=== PATIENT | female | born 1945 | race Caucasian/White ===

== ENCOUNTER → 2017-09-23 | Outpatient (CLI) | payer MEDICARE, BC, OTHER | LOC: MC.RAD 10:10 | DX: Z12.31 Encounter for screening mammogram for malignant neoplasm of breast (principal) ==

== ENCOUNTER → 2017-09-25 | Outpatient (CLI) | payer MEDICARE, BC, OTHER | LOC: MC.RAD 09:46 | DX: R92.2 Inconclusive mammogram (principal) ==

== ENCOUNTER 2017-09-30 09:40 | Outpatient (CLI) | payer MEDICARE, BC, OTHER ==
[~2017-09-30] VITALS: Ht 149.9 cm; Wt 53.0 kg
[2017-09-30 10:30] VITALS: BP 121/66; PULSE 63; TEMP 98.9
[2017-09-30] MEDS ORDERED: LIPITOR 10MG10 MG PO (10:35)
[2017-09-30] MEDS ORDERED: THE MEDICINE S200 M2 PO (10:36)
[2017-09-30] MEDS ORDERED: ARICEPT10 MG PO (10:37)
[2017-09-30] MEDS ORDERED: FIBER GUMMIES2.5 GM PO (10:38)
[2017-09-30] MEDS ORDERED: ONE-A-DAY WOMEN1 TAB PO (10:39)
[2017-09-30] MEDS ORDERED: LUTEIN20 M1 PO (10:39)
[2017-09-30] MEDS ORDERED: TRIAMCINOLONE A15 GM TP (10:40)
== END 2017-09-30 11:55 | disposition home or self-care (01) ==
LOC: EUO 09:40
DX: M81.0 Age-related osteoporosis without current pathological fracture (principal)
CPT/HCPCS: J3489

== ENCOUNTER 2018-08-30 14:45 | Outpatient (CLI) | payer MEDICARE, BC, OTHER ==
[~2018-08-30] VITALS: Ht 149.9 cm; Wt 55.2 kg
[~2018-08-30 14:45] MED LIST: ARICEPT10 MG PO; FIBER GUMMIES2.5 GM PO; LIPITOR 10MG10 MG PO; LUTEIN20 M1 PO; ONE-A-DAY WOMEN1 TAB PO; THE MEDICINE S200 M2 PO; TRIAMCINOLONE A15 GM TP
[2018-08-30] MEDS ORDERED: TYLENOL 325MG325 MG PO (15:06)
[2018-08-30] MEDS ORDERED: ASPIRIN 32325 MG/TAB PO (15:07)
[2018-08-30] MEDS ORDERED: ZYRTEC 10MG10 MG PO (15:08)
[2018-08-30] MEDS ORDERED: ADVIL200 MG PO (15:08)
[2018-08-30] MEDS ORDERED: PRILOSEC 20MG20 MG PO (15:10)
[2018-08-30 15:22] VITALS: BP 115/54; PULSE 62; TEMP 99.2
== END 2018-08-30 16:01 | disposition home or self-care (01) ==
LOC: EUO 14:45
DX: M81.0 Age-related osteoporosis without current pathological fracture (principal)
CPT/HCPCS: J3489

== ENCOUNTER 2019-02-22 14:26 | Outpatient (CLI) | payer MEDICARE, BC, OTHER ==
[~2019-02-22] VITALS: Ht 149.9 cm; Wt 56.0 kg
[~2019-02-22 14:26] MED LIST changes: +ADVIL200 MG PO; +ASPIRIN 32325 MG/TAB PO; +PRILOSEC 20MG20 MG PO; +TYLENOL 325MG325 MG PO; +ZYRTEC 10MG10 MG PO
[2019-02-22 15:00] VITALS: BP 115/64; PULSE 74; TEMP 98.5
== END 2019-02-22 16:44 | disposition home or self-care (01) ==
LOC: EUO 14:26
DX: M81.0 Age-related osteoporosis without current pathological fracture (principal)
CPT/HCPCS: J3489

== ENCOUNTER 2019-04-07 18:50 | Inpatient (IN) | payer MEDICARE, BC, OTHER ==
[~2019-04-07] VITALS: Ht 152 cm; Wt 56.7 kg
[2019-04-07 19:17] LABS: BASO % 0.3 % (0.0-2.0); EOS # 0.3 (0.0-0.7); EOS % 2.2 % (0-4.0); GRAN # 9.4 (1.4-6.5); GRAN % 69.7 % (42.2-75.2); HEMATOCRIT 39.4 % (37.0-47.0); HEMOGLOBIN 13.1 g/dl (12.5-16.0); LYMPH # 2.8 (1.2-3.4); LYMPH % 21.1 % (20.0-51.0); MEAN CELL VOLUME 88 fl (80.0-100.0); MEAN CORPUSCULAR HEMOGLOBIN 29 pg (27.0-31.0); MEAN CORPUSCULAR HGB CONC 33 g/dl (33.0-37.0); MEAN PLATELET VOLUME 9.5 fl (7.4-10.4); MONO # 0.9 (0.1-0.6); MONO % 6.3 % (1.7-9.3); PLATELET COUNT 330 K/mm3 (130-400); RED BLOOD COUNT 4.47 M/mm3 (4.10-5.30); REDCELL DISTRIBUTION WIDTH-CV 13.5 % (11.5-14.5)
[2019-04-07 19:33] LABS: ALBUMIN 4.4 gm/dL (3.5-5.0); BILIRUBIN,TOTAL 0.5 mg/dL (0.0-1.0); C-REACTIVE PROTEIN 1.8 mg/dL (0.0-0.9); CREATININE, serum 1.01 (0.52-1.25); POTASSIUM 3.5 mmol/L (3.4-5.0); TOTAL PROTEIN 7.5 gm/dL (6.4-8.2)
[2019-04-07 20:55] LABS: COLLECTION METHOD CLEAN CATCH
[2019-04-07 21:02] LABS: PROTHROMBIN TIME 11.5 SECONDS (9.7-12.8)
[2019-04-07 21:05] LABS: PH 6 (5-8); SQUAMOUS EPITHELIAL 0-2 /hpf; URINE APPEARANCE Clear; URINE BACTERIA None Seen /hpf; URINE BILIRUBIN Negative (NEGATIVE); URINE BLOOD Negative (NEGATIVE); URINE COLOR Straw; URINE GLUCOSE Negative (NEGATIVE); URINE KETONE Negative (NEGATIVE); URINE LEUKOCYTE ESTERASE 1+ (NEGATIVE); URINE NITRATE Negative (NEGATIVE); URINE PROTEIN(semi-quant) Negative (NEGATIVE); URINE RBC None Seen /hpf; URINE UROBILINOGEN Negative (NEGATIVE)
[2019-04-07 21:05] LABS: PARTIAL THROMBOPLASTIN TIME 29.8 SECONDS (26.0-37.0)
[2019-04-07] MEDS ORDERED: PRESERVISION1 SGL PO (21:41)
[2019-04-07] MEDS ORDERED: IMODIUM A-D2 MG PO (21:43)
[2019-04-07] MEDS ORDERED: BENADRYL25 M2 PO (21:44)
--- NOTE | 2019-04-07 22:00 | NUR ---
Pt arrived via stretcher from ER. Ambulatory to bed without difficulty. Pt denies pain. at bedside to help with admission. Pt is a poor historian due to dementia. Med Rec reviewed with patient and and medication bottles. Respirations are even and unlabored. Lungs clear. Abdomen soft, nontender. BS+. No c/o pain. No needs voiced.
[2019-04-07 22:03] VITALS: BP 123/66; PULSE 79; TEMP 98.1
[2019-04-07] MEDS ORDERED: MELATONIN5 M1 SL (22:16)
--- NOTE | 2019-04-07 23:00 | NUR ---
Felisha LANGFORD saw patient. Orders inputted. Patients potassium level in decreased- replacement ordered. Potassium protocol initiated.
[2019-04-07 23:51] VITALS: BP 125/74; PULSE 78; TEMP 97.9
[2019-04-08] VITALS (7 sets, daily range): BP systolic 117–149; BP diastolic 48–79; PULSE 65–84; TEMP 97.5–98.1
--- NOTE | 2019-04-08 05:50 | NUR ---
Pt sleeping this AM. Easily arousable. Denies pain. Up to the bathroom x2 throughout the night. Ambulates with ease with SBA. Pt did not have a BM since admission. IV Potassium replacement continues to infuse to L AC IV site.
[2019-04-08 07:40] LABS: CALCIUM 7.9 mg/dL (8.4-10.2); CREATININE, serum 0.9 (0.52-1.25); POTASSIUM 4.6 mmol/L (3.4-5.0)
[2019-04-08 08:01] LABS: BASO % 0.3 % (0.0-2.0); EOS # 0.2 (0.0-0.7); EOS % 2.3 % (0-4.0); GRAN # 7.2 (1.4-6.5); GRAN % 68.4 % (42.2-75.2); HEMOGLOBIN 11.3 g/dl (12.5-16.0); LYMPH # 2.3 (1.2-3.4); LYMPH % 21.6 % (20.0-51.0); MEAN CELL VOLUME 89 fl (80.0-100.0); MEAN CORPUSCULAR HEMOGLOBIN 30 pg (27.0-31.0); MEAN CORPUSCULAR HGB CONC 33 g/dl (33.0-37.0); MEAN PLATELET VOLUME 9.6 fl (7.4-10.4); MONO # 0.7 (0.1-0.6); MONO % 6.8 % (1.7-9.3); PLATELET COUNT 268 K/mm3 (130-400); RED BLOOD COUNT 3.81 M/mm3 (4.10-5.30); REDCELL DISTRIBUTION WIDTH-CV 13.8 % (11.5-14.5)
[2019-04-08 08:07] LABS: HEMATOCRIT 33.8 % (37.0-47.0)
--- NOTE | 2019-04-08 09:14 | NUR ---
Dr Darling here to see patient.
--- NOTE | 2019-04-08 09:58 | NUR ---
ANALI met with the patient and her , Dante to discuss a discharge plan. The patient and Dante [place]. The patient has a cane but does not use it and patient reports independence with ADLs. The patient's PCP is Dr. Bates and patient receives medications from [facility] with no difficulties. The patient does not have advanced directives in the EMR but reports they are completed and designate her Dante. The patient plans to return home upon discharge with Dante providing transportation. janitorial services supervisor will continue to follow to ensure a safe discharge.
--- NOTE | 2019-04-08 20:05 | NUR ---
Patient calls asking for more Benadryl for itching. Noted skin redness with several hives to right posterior thigh, inner left leg, right arm and chest with redness and itching. Notified Hector LANGFORD for orders. Denies shortness of breath.
--- NOTE | 2019-04-08 20:23 | NUR ---
BENADRYL 25MG PO AT THIS TIME. UP TO BATHROOM, VOIDS ONLY AND MISSES HAT. DENIES PAIN AT THIS TIME. IV TO LEFT AC WITHOUT REDNESS OR SWELLING. BACK TO BED WITH STEADY GAIT.
--- NOTE | 2019-04-08 22:00 | NUR ---
PATIENT REPORTS ITCHING HAS RESOLVED.
[2019-04-09 04:00] VITALS: BP 112/48; PULSE 75; TEMP 97.9
--- NOTE | 2019-04-09 04:00 | NUR ---
No further complaints of itching. Has been up several times for voiding only. Denies needs at this time.
[2019-04-09 07:01] LABS: BASO % 0.2 % (0.0-2.0); EOS # 0.2 (0.0-0.7); GRAN # 6.3 (1.4-6.5); GRAN % 68.7 % (42.2-75.2); HEMOGLOBIN 11.2 g/dl (12.5-16.0); LYMPH # 2.2 (1.2-3.4); LYMPH % 24.1 % (20.0-51.0); MEAN CELL VOLUME 89 fl (80.0-100.0); MEAN CORPUSCULAR HEMOGLOBIN 30 pg (27.0-31.0); MEAN CORPUSCULAR HGB CONC 33 g/dl (33.0-37.0); MEAN PLATELET VOLUME 10.2 fl (7.4-10.4); MONO # 0.4 (0.1-0.6); MONO % 4.8 % (1.7-9.3); PLATELET COUNT 258 K/mm3 (130-400); REDCELL DISTRIBUTION WIDTH-CV 13.7 % (11.5-14.5)
[2019-04-09 07:04] LABS: HEMATOCRIT 33.9 % (37.0-47.0)
[2019-04-09 07:14] LABS: CALCIUM 7.8 mg/dL (8.4-10.2); CREATININE, serum 0.83 (0.52-1.25); MAGNESIUM 1.9 mg/dL (1.6-2.3); POTASSIUM 3.7 mmol/L (3.4-5.0)
[2019-04-09 07:19] VITALS: BP 112/48; PULSE 69; TEMP 97.8
--- NOTE | 2019-04-09 09:30 | NUR ---
Patient alert and oriented, answers questions appropriately. See assessment. No c/o abdominal pain or pressure. Bowel sounds active x4 quads. +Flatus. +Bowel movement, minimal blood noted. Abdomen soft, non tender, non distended. No c/o at this time.
[2019-04-09] MEDS ORDERED: OMNICEF 300MG300 MG PO (10:54)
[2019-04-09 12:00] VITALS: BP 126/50; PULSE 66; TEMP 98.3
--- NOTE | 2019-04-09 13:36 | NUR ---
Discharge instructions reviewed with patient and spouse, verbalized understanding. Discharged ambulatory to auto/home with spouse at [id number].
== END 2019-04-09 13:35 | disposition home or self-care (01) | DRG 392 ==
LOC: COL.ER 18:50 → SURG 19:47
PROVIDERS: Family Medicine; Internal Medicine; Nurse Practitioner Family; ADMIT Student in an Organized Health Care Education/Training Program
DX: K52.9 Noninfective gastroenteritis and colitis, unspecified (principal); K62.5 Hemorrhage of anus and rectum; K57.30 Diverticulosis of large intestine without perforation or abscess without bleeding; K21.9 Gastro-esophageal reflux disease without esophagitis; F03.90 Unspecified dementia, unspecified severity, without behavioral disturbance, psychotic disturbance, mood disturbance, and anxiety; E87.6 Hypokalemia; L25.9 Unspecified contact dermatitis, unspecified cause; R82.81 Pyuria; Z88.8 Allergy status to other drugs, medicaments and biological substances; Z88.1 Allergy status to other antibiotic agents; Z88.2 Allergy status to sulfonamides
CPT/HCPCS: 99222-AI; 99239; A4216; C9113; J0696; J3480; J7030; J7120; Q9967

== ENCOUNTER 2019-11-01 08:55 | Outpatient (CLI) | payer MEDICARE, BC, OTHER ==
[~2019-11-01] VITALS: Ht 152.4 cm; Wt 54.1 kg
[~2019-11-01 08:55] MED LIST changes: +BENADRYL25 M2 PO; +IMODIUM A-D2 MG PO; +MELATONIN5 M1 SL; +OMNICEF 300MG300 MG PO; +PRESERVISION1 SGL PO
[2019-11-01 09:19] VITALS: BP 123/73; PULSE 77; TEMP 98.4
[2019-11-01] MEDS ORDERED: ADVIL200 MG PO (09:19)
== END 2019-11-01 10:31 | disposition home or self-care (01) ==
LOC: EUO 08:55
DX: M81.0 Age-related osteoporosis without current pathological fracture (principal)
CPT/HCPCS: J3489